=== PATIENT | female | born 1975 | race Caucasian/White ===

== ENCOUNTER 2022-03-16 22:47 | Emergency (ER) | payer BC ==
[2022-03-16] MEDS ORDERED: LORazepam 1 MG Tab ONE (23:00)
[2022-03-17] MEDS ORDERED: Aspirin 81 MG Tab.Chew PO ONE (00:20)
[2022-03-17] MEDS ORDERED: Ondansetron 4 MG/2 ML SDV IVPUSH ONE (00:20)
== END 2022-03-17 00:40 | disposition home or self-care (01) ==
LOC: LB.ED 22:47
DX: R07.89 Other chest pain (principal); F41.9 Anxiety disorder, unspecified
CPT/HCPCS: 36415; 71045; 80053; 83735; 84484; 85025; 85610; 93005; 93010; 96374; 99283; 99285-25; A9270-GY; J2405